=== PATIENT | male | born 1975 ===

== ENCOUNTER 2017-11-16 08:51 | Day surgery (SDC) | payer OTHER ==
[~2017-11-16] VITALS: Ht 162.6 cm; Wt 75.7 kg
[2017-11-16] VITALS (8 sets, daily range): BP systolic 101–116; BP diastolic 46–77
--- NOTE | 2017-11-16 06:39 | Anethesia Preoperative Eval ---
Anesthesia Pre-op PMH/ROS General Date of Evaluation: Nov 16, 2017 Time of Evaluation: 06:38 Anesthesiologist: joesph ASA Score: ASA 2 Mallampati Score Class I : Soft palate, uvula, fauces, pillars visible Class II: Soft palate, uvula, fauces visible Class III: Soft palate, base of uvula visible Class IV: Only hard plate visible Mallampati Classification: Class II Surgeon: bhaskar Diagnosis: gerd Surgical Procedure: egd Anesthesia History: none Family History: no anesthesia problems Allergies: Coded Allergies: No Known Allergies (Unverified , 11/16/17) Medications: see eMAR Past Medical History Gastrointestinal/Genitourinary: Reports: GERD Musculoskeletal/Integumentary: Reports: other - back pain Anesthesia Pre-op Phys. Exam Physician Exam Last Vital Signs Date Time Temp Pulse Resp B/P (MAP) Pulse Ox O2 Delivery O2 Flow Rate FiO2 11/16/17 09:48 Room Air 11/16/17 09:43 97.9 59 18 116/77 (90) 96 97.9 Constitutional: NAD Neurologic: CN 2-12 intact Cardiovascular: RRR Respiratory: CTA Gastrointestinal: S/NT/ND Airway Exam Mallampati Score: Class II MO: full Neck: supple TMD: 2fb ROM: full Teeth: intact Anesthesia Pre-op A/P Risk Assessment & Plan Assessment: asa2 Plan: mac Status Change Before Surgery: No Pre-Antibiotics Drug: Rocío Lino MD Nov 16, 2017 06:39
[2017-11-16] MEDS ORDERED: NKM (09:46)
--- NOTE | 2017-11-16 10:40 | Short Stay Surgery H&P ---
History of Present Illness History of Present Illness Chief Complaint Heartburn/GERDS/abdominal pain HPI Jorge Blue is a 42 year old male who was admitted on for Reflux/ abdominal pain Medication History Scheduled No Known Medications* (NKM - No Known Medications*), 0 ., (Reported) Review of Systems Cardiovascular: Reports: no symptoms Respiratory: Reports: no symptoms Skeletal: Reports: trauma Gastrointestinal: Reports: gastro esophageal reflux disease Genitourinary: Reports: no symptoms Neurologic: Reports: no symptoms Endocrine: Reports: no symptoms Hematologic: Reports: no symptoms Physical Exam Vital Signs Last Vital Signs Date Time Temp Pulse Resp B/P (MAP) Pulse Ox O2 Delivery O2 Flow Rate FiO2 11/16/17 09:48 Room Air 11/16/17 09:43 97.9 59 18 116/77 (90) 96 97.9 Skin: normal HENT: normal Heart: normal Lungs: normal Abdomen: abnormal Extremities: normal Genitourinary: normal Plan Plan of Care Upper GI endoscopy and biopsy. Preop Interventions None. Summary of Findings See the reports. Attestation Are the patient's medical conditions optimized for surgery? Attestation Response: yes Rob Flowers MD Nov 16, 2017 10:40
--- NOTE | 2017-11-16 10:41 | Pre-Procedure Note/Attestation ---
Pre-Procedure Note/Attestation Complete Prior to Procedure Planned Procedure: left Procedure Narrative: Examination of the upper GI tract via endoscopic exam Indications for Procedure Pre-Operative Diagnosis: R/O Peptic Ulcer/gastritis. Attestation I attest that I discussed the nature of the procedure; its benefits; risks and complications; and alternatives (and the risks and benefits of such alternatives ), prior to the procedure, with the patient (or the patient's legal personal banking representative). I attest that, if there was a reasonable possibility of needing a blood transfusion, the patient (or the patient's legal personal banking representative) was given the [facility] standardized written summary, pursuant to the Vicente Raymond Blood Safety Act ([place] Health and Safety Code # 1645, as amended). I attest that I re-evaluated the patient just prior to the surgery and that there has been no change in the patient's H&P, except as documented below: Rob Flowers MD Nov 16, 2017 10:41
[2017-11-16] MEDS ORDERED: Lidocaine 1% MPF 10mg/ml 5ml ONE (11:00)
[2017-11-16] MEDS ORDERED: LR 1000ml ONE (11:00)
[2017-11-16] MEDS ORDERED: Propofol 200mg/20ml IV ONE (11:00)
--- NOTE | 2017-11-16 11:00 | Endoscopy Procedure Note ---
Endoscopy Procedure Note General Indication for Procedure: Abdominal pains/heartburn Procedures Performed: EGD - Mild gastritis, otherwise normal Upper GI endoscopy. Biopsies obtained from the gastric body and the antrum. Specimen: yes Pt Tolerated Procedure Well: Yes Estimated Blood Loss: none Anesthesia Anesthesiologist: Dr. Shankar Anesthesia: moderate sedation Medications Medication Given: see anesthesia record Inserted Devices Implant(s) used?: No Quality Quality of Bowel Preparation: Excellent Was there any complications?: No GI Core Measures 50 yrs or older w/o bx or poly: Not Applicable 10yrs. F/U not recommended: Not Applicable If not recommended, why?: Med reason:<3 yrs.: System Reason:<3 yrs.: Rob Flowers MD Nov 16, 2017 11:00
--- NOTE | 2017-11-16 11:01 | Discharge Instructions ---
Discharge Instructions Discharge Instructions Follow up with: see the doctor after 2 weeks in the office. For Congestive Heart Failure Reminder Report to your physician any weight gain of 5 pounds or more in one week. Rob Flowers MD Nov 16, 2017 11:01
[2017-11-16] MEDS ORDERED: Midazolam 2mg/2ml Inj IVP PRN (11:31)
[2017-11-16] MEDS ORDERED: fentaNYL 100 mcg/2 mL IV PRN (11:31)
[2017-11-16] MEDS ORDERED: Labetalol 5mg/ml 20ml vial IV PRN (11:31)
[2017-11-16] MEDS ORDERED: LR 1000ml 1,000 ML IVLG SCH (11:32)
[2017-11-16] MEDS ORDERED: DiphenhydrAMINE 50mg/ml Inj IVP PRN (11:32)
[2017-11-16] MEDS ORDERED: Atropine Inj 1mg/10ml Syr IV PRN (11:32)
--- NOTE | 2017-11-16 12:46 | Immediate Post-Op Evaluation ---
Immediate Post-Op Evalulation Immediate Post-Op Evalulation Procedure: egd w/bx Date of Evaluation: Nov 16, 2017 Time of Evaluation: 11:14 IV Fluids: 400ml lr Blood Products: none Estimated Blood Loss: negligible Blood Pressure Systolic: 107 Blood Pressure Diastolic: 72 Pulse Rate: 78 Respiratory Rate: 18 O2 Sat by Pulse Oximetry: 97 Temperature (Fahrenheit): 98.5 Pain Score (1-10): 0 Nausea: No Vomiting: No Complications none Patient Status: awake, reacts, patent Hydration Status: adequate Drug: Rocío Lino MD Nov 16, 2017 12:46
--- NOTE | 2017-11-16 12:49 | 48 Hour Post Anesthesia Eval ---
Post Anesthesia Evaluation Procedure: egd w/bx Date of Evaluation: Nov 16, 2017 Time of Evaluation: 11:16 Blood Pressure Systolic: 107 0: 63 Pulse Rate: 77 Respiratory Rate: 18 Temperature (Fahrenheit): 98.5 O2 Sat by Pulse Oximetry: 99 Airway: patent Nausea: No Vomiting: No Pain Intensity: 0 Hydration Status: adequate Cardiopulmonary Status: stable Mental Status/LOC: patient returned to baseline Post-Anesthesia Complications: none Follow-up care needed: N/A Rocío Goldstein MD Nov 16, 2017 12:48
--- NOTE | 2017-11-16 20:46 | Operative Note - Dictated ---
DATE OF OPERATION: 11/16/2017 SURGEON: Rob Flowers M.D. PROCEDURE: Esophagogastroduodenoscopy with biopsy. PREOPERATIVE DIAGNOSES: 1. Abdominal pain. 2. History of gastroesophageal acid reflux. POSTOPERATIVE DIAGNOSIS: Mild gastritis, otherwise normal upper GI endoscopy. Biopsies were obtained from the gastric body and the antrum. MEDICATION USED: Per Dr. Shankar, anesthesiologist. INSTRUMENT: GIF Olympus upper GI video endoscope. DESCRIPTION OF PROCEDURE: The patient after arriving endoscopy unit, was told about risks and benefits of the procedure, which he accepted and signed informed consent. At this time, he was put on the left lateral decubitus position. After adequate IV sedation, the scope was gently passed through the cricopharyngeal area, was lodged into the upper esophagus, and gradually advanced towards gastroesophageal junction. The entire length of the esophagus looked normal. The gastroesophageal junction also looked normal without any evidence of Elliott's or hiatal hernia. At this time, the scope was gradually introduced into the gastric cavity. Insufflation of the air produced adequate visualization of the fundus and the body and the antrum of the stomach. These areas looked normal, however, there was mild inflammatory process presenting with mild erythema, but no ulcers or tumors or polyps or bleeding sites were noted. Retroflexion maneuver was also applied and the gastroesophageal junction was examined in a closer fashion, which did not reveal any particular other abnormalities. At this point, biopsies from the gastric body and the antrum were obtained and subsequently, the scope was passed through normal looking pylorus. First and second portion of duodenum were found to be completely normal. At this time, the scope was pulled out and the procedure was terminated. The patient tolerated the procedure well and left the endoscopy room in good condition. Rob Flowers M.D. DR: NANCY JOB#: [id number] CC:
--- NOTE | 2017-11-16 21:01 | Pre-op HX & Phy Repo 2 SIG ---
DATE OF ADMISSION: 11/16/2017 HISTORY OF PRESENT ILLNESS: The applicant is a 42-year-old [id number] gentleman who is being seen prior to undergoing the procedure of upper GI endoscopy for which he has been scheduled to receive for evaluation of his GI symptoms that he has suffered subsequent to work injuries and accident. The applicant basically reports that he is experiencing significant pain over the upper part of the abdomen with heartburn which causes a lot of problems in terms of his daily activities as he has also been taking nonsteroidal anti-inflammatory in the past as medications such as ibuprofen which seemed to have caused these symptoms. He took them for a long period of time. The patient however denies any nausea, vomiting, hematemesis, melena, hematochezia, or dysphagia at this point. As I mentioned, when he was injured at job site, he was also prescribed strong analgesics, but he denies any diarrhea or constipation. 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 Basically, the injury was over his lower back area for which he got a lot of treatment including injections in that area as well and was seen by different physicians including pain management. The patient did have history of being prescribed Prilosec 20 mg along with gabapentin as well, as he was also complaining of diarrhea and he was seen by . PAST MEDICAL HISTORY: Basically, none significant. He denies any hypertension, hyperlipidemia, diabetes, etc. SURGERIES: None significant. ALLERGIES: None. HABITS: He does not smoke cigarettes or drink. MEDICATIONS: Not available at this time. REVIEW OF SYSTEMS: Basically history of present illness. The applicant basically complains of abdominal pain and heartburn as I mentioned with pain over his lower back area and insomnia. PHYSICAL EXAMINATION: GENERAL: Reveals alert, oriented gentleman who does not seem to be in any acute distress. VITAL SIGNS: All vital signs are stable. HEENT: Normocephalic. Pupils equal in size and reactive to light and accommodation. No conjunctival jaundice. Buccal cavity, tongue midline, well hydrated, no ulcers. NECK: Supple. No JVD, thyromegaly, or adenopathy. CHEST: Clear to auscultation and percussion. No rales or rhonchi. HEART: S1 and S2 normal. Regular rhythm. No gallops or murmur. ABDOMEN: Soft and there is mild tenderness over the upper part of the abdomen, otherwise nonsignificant. No organomegaly. No masses palpated at this time. EXTREMITIES: Within normal limits. CENTRAL NERVOUS SYSTEM: Grossly normal. PRELIMINARY PREOPERATIVE IMPRESSION: 1. Abdominal pain, epigastric pain with history of significant heartburn consistent with gastroesophageal reflux, rule out underlying NSAID-induced peptic ulcer, gastritis, esophagitis, etc. 2. History of bodily injury, work-related orthopedic diagnosis. RECOMMENDATION: The applicant seems to be stable at this time to undergo the procedure for upper GI endoscopy for which he has been authorized to receive. He understands the risks and benefits and will sign the consent. Said Dheeraj Flowers DR: Annalisa JOB#: [id number] CC:
== END 2017-11-16 12:05 | disposition home or self-care (01) ==
LOC: GAS 08:51
DX: K29.50 Unspecified chronic gastritis without bleeding (principal)
CPT/HCPCS: 43239; J2704; J7120; 94003; 94150